=== PATIENT | female | born 1995 | race Caucasian/White ===

== ENCOUNTER 2019-04-06 09:57 | Emergency (ER) | payer MEDICAID ==
[~2019-04-06] VITALS: Ht 154.9 cm; Wt 74.4 kg
[~2019-04-06 09:57] MED LIST: CARAFATE1 GM PO; CEPHALEXIN 500500 M3 PO; HYDROCODONE-AP1 EAC6 PO; IMITREX 25 MG T25 M1 PO; TOPAMAX 25 MG T25 M1 PO; TRAMADOL 50 MG50 MG PO; ZOFRAN ODT4 MG PO
[2019-04-06] MEDS ORDERED: CORTISPORIN OTI10 M2 OTIC (10:09)
[2019-04-06 10:14] VITALS: BP 130/82
== END 2019-04-06 10:15 | disposition home or self-care (01) ==
LOC: M.ERS 09:57
DX: H60.92 Unspecified otitis externa, left ear (principal); G43.909 Migraine, unspecified, not intractable, without status migrainosus; Z88.6 Allergy status to analgesic agent; Z88.0 Allergy status to penicillin

== ENCOUNTER 2019-04-24 09:35 | Emergency (ER) | payer MEDICAID ==
[~2019-04-24] VITALS: Ht 154.9 cm; Wt 74.8 kg
[~2019-04-24 09:35] MED LIST changes: +CORTISPORIN OTI10 M2 OTIC
[2019-04-24 09:44] VITALS: BP 126/79
[2019-04-24] MEDS ORDERED: NORCO 5-325 TA1 EAC1 PO (09:52)
[2019-04-24] MEDS ORDERED: IBUPROFEN 800800 M1 PO (09:52)
[2019-04-24] MEDS ORDERED: ZPAK PO (09:52)
[2019-04-24] MEDS ORDERED: FLEXERIL PO (09:52)
== END 2019-04-24 09:59 | disposition home or self-care (01) ==
LOC: M.ERS 09:35
DX: M26.602 Left temporomandibular joint disorder, unspecified (principal); H92.02 Otalgia, left ear; G43.909 Migraine, unspecified, not intractable, without status migrainosus; Z88.6 Allergy status to analgesic agent; Z88.0 Allergy status to penicillin

== ENCOUNTER 2019-07-10 10:12 | Emergency (ER) | payer OTHER ==
[~2019-07-10] VITALS: Ht 157.5 cm; Wt 81.2 kg
[~2019-07-10 10:12] MED LIST changes: +FLEXERIL PO; +IBUPROFEN 800800 M1 PO; +NORCO 5-325 TA1 EAC1 PO; +ZPAK PO
[2019-07-10 10:32] LABS: URINE BILIRUBIN NEGATIVE (Negative); URINE BLOOD 1+ (Negative); URINE CLARITY CLEAR; URINE COLOR YELLOW; URINE GLUCOSE-RANDOM NEGATIVE (Negative); URINE KETONES 1+ (Negative); URINE LEUKOCYTES-REFLEX 1+ (Negative); URINE NITRITE-REFLEX NEGATIVE (Negative); URINE PROTEIN NEGATIVE (Negative); URINE UROBILINOGEN 0.2 E.U./dl (0.2-1.0)
[2019-07-10] MEDS ORDERED: ZANAFLEX4 MG PO (10:53)
[2019-07-10] MEDS ORDERED: MEDROLDOSEPACK PO (10:53)
[2019-07-10 11:12] LABS: SQUAMOUS 4-10 Moderate /LPF (0-3); URINE RBC 0-2 Rare /HPF (0-2); URINE WBC-REFLEX 6-15 Few /HPF (0-5)
[2019-07-10 11:13] LABS: BACTERIA-REFLEX 1-9 Few /HPF (None Seen); CASTS None Seen /LPF (None Seen); CRYSTALS None Seen /LPF (None Seen); MUCUS None Seen strn/LPF (None Seen)
[2019-07-10] MEDS ORDERED: TRAMADOL 50 MG50 MG PO (11:23)
[2019-07-10 11:32] VITALS: BP 123/69
== END 2019-07-10 11:33 | disposition home or self-care (01) ==
LOC: M.ERS 10:12
PROVIDERS: Nurse Practitioner Family
DX: M54.5 Low back pain (principal); G43.909 Migraine, unspecified, not intractable, without status migrainosus; Z88.0 Allergy status to penicillin; Z88.6 Allergy status to analgesic agent